=== PATIENT | female | born 1965 | race Caucasian/White ===

== ENCOUNTER 2020-05-26 17:15 | Observation (INO) ==
[2020-05-26 18:28] LABS: Basophils % 0.3 %; Eosinophils # 0.1 K/mcL (0.0-0.6); Eosinophils % 0.7 %; Hemoglobin 6.5 g/dL (11.5-15.4); Immature Granulocytes % 2.5 % (0-4); Lymphocytes # 1.8 K/mcL (0.6-4.6); Lymphocytes % 26.4 %; Mean Corpuscular HGB Conc 32.5 g/dL (31.6-35.5); Mean Corpuscular Hemoglobin 32.3 pg (28.0-33.3); Mean Corpuscular Volume 99.5 fL (83.0-100.0); Mean Platelet Volume 12.6 fL (9.4-12.4); Monocytes # 0.5 K/mcL (0.0-1.3); Monocytes % 7.1 %; Neutrophils # 4.3 K/mcL (1.6-8.9); Nucleated Red Blood Cells 1.2 /100 WBC (0); Platelet Count 121 K/mcL (140-400); Red Blood Count 2.01 M/mcL (3.82-4.97); White Blood Count 6.8 K/mcL (4.3-11.1)
[2020-05-26 18:31] LABS: Bilirubin,Urine Negative (Negative); Blood,Urine Trace (Negative); Clarity,Urine Clear (Clear); Color,Urine Light-Orange (Yellow); Glucose,Urine (UA) Normal (Normal); Ketones,Urine Negative (Negative); Leukocyte Esterase,Urine Moderate (Negative); Mucus,Urine Few per lpf (None-Few); Nitrite,Urine Negative (Negative); Protein,Urine Trace mg/dL (Neg-Trace); RBC,Urine 0-3 per hpf (0-3); Squamous Epithelial Cell,Urine Few per hpf (None-Few)
[2020-05-26 18:34] LABS: INR 1.1; Prothrombin Time 13.2 Seconds (9.4-12.1)
[2020-05-26 18:36] LABS: Activated Partial Thrombo Time 26.9 Seconds (26.0-36.0)
[2020-05-26 18:39] LABS: Alanine Aminotransferase 15 Units/L (7-52); Albumin 4.1 g/dL (3.5-5.7); Alkaline Phosphatase 93 Units/L (34-104); Aspartate Amino Transferase 19 Units/L (13-39); BUN/Creatinine Ratio 17 (6-26); Bilirubin,Total 2.1 mg/dL (0.3-1.0); Blood Urea Nitrogen 10 mg/dL (6-20); Calcium 9.5 mg/dL (8.6-10.3); Carbon Dioxide 23 mEq/L (23-29); Chloride 102 mEq/L (98-107); Globulin 2.1 g/dL (2.4-3.5); Glucose 107 mg/dL (70-105); Lipase 42 Units/L (11-82); Osmolality,Calculated 280 (280-300); Potassium 3.7 mEq/L (3.5-5.1); Sodium 135 mEq/L (136-145); Total Protein 6.2 g/dL (6.4-8.9); Troponin I < 0.03 ng/mL (< 0.04); eGFR For African Americans > 60 (> 60); eGFR For Non-African Americans > 60 (> 60)
[2020-05-26] MEDS ORDERED: Isovue-370 500 ML BOTTLE IVP ONE ×2 (18:41→20:33)
[2020-05-26 18:47] LABS: Hypochromasia Present (Not Present)
[2020-05-26 18:48] LABS: Platelet Estimate Slight Decrease (Normal)
[2020-05-26 19:01] LABS: Hepatitis B Surface Antigen Nonreactive (Nonreactive)
[2020-05-26 19:30] LABS: Hepatitis B Core IgM Nonreactive (Nonreactive); Hepatitis C Virus Antibody Nonreactive (Nonreactive)
[2020-05-26 19:32] LABS: Hepatitis A Antibody IgM Nonreactive (Nonreactive)
[2020-05-26] MEDS ORDERED: Morphine Sulfate 2 MG/ML SYRINGE IVP ONE (20:22)
[2020-05-26] MEDS ORDERED: Naloxone 0.4 MG/ML INJ IVP PRN (22:40)
[2020-05-26] MEDS ORDERED: Ondansetron 4 MG/2 ML VIAL IVP PRN (22:56)
[2020-05-27 00:03] LABS: % Iron Saturation 35 % (15-50); Iron 111 mcg/dL (50-170); Transferrin 226 mg/dL (203-362)
[2020-05-27 01:20] LABS: Bilirubin,Direct 0.4 mg/dL (0.0-0.2); Bilirubin,Indirect 1.7 mg/dL (0.0-1.0)
[2020-05-27 05:37] LABS: Hematocrit 18.2 % (35.3-44.9); Immature Platelets 6.5 % (1.1-6.1); Immature Reticulocyte % 34.4 % (11.0-38.0); Mean Corpuscular HGB Conc 32.4 g/dL (31.6-35.5); Mean Corpuscular Hemoglobin 32.6 pg (28.0-33.3); Mean Corpuscular Volume 100.6 fL (83.0-100.0); Mean Platelet Volume 11.7 fL (9.4-12.4); Platelet Count 109 K/mcL (140-400); Red Blood Count 1.81 M/mcL (3.82-4.97); Retculocyte # 0.07 M/mcL (0.05-0.10); Reticulocyte % 3.7 % (1.6-2.8); White Blood Count 4.1 K/mcL (4.3-11.1)
[2020-05-27 05:56] LABS: BUN/Creatinine Ratio 12 (6-26); Blood Urea Nitrogen 7 mg/dL (6-20); Carbon Dioxide 27 mEq/L (23-29); Chloride 106 mEq/L (98-107); Glucose 106 mg/dL (70-105); Hemoglobin 5.9 g/dL (11.5-15.4); Osmolality,Calculated 284 (280-300); Sodium 138 mEq/L (136-145); eGFR For African Americans > 60 (> 60); eGFR For Non-African Americans > 60 (> 60)
[2020-05-27 05:57] LABS: Albumin 3.8 g/dL (3.5-5.7); Albumin/Globulin Ratio 1.9 (1.1-2.2); Bilirubin,Direct 0.4 mg/dL (0.0-0.2); Bilirubin,Indirect 1.5 mg/dL (0.0-1.0); Bilirubin,Total 1.9 mg/dL (0.3-1.0); Total Protein 5.8 g/dL (6.4-8.9)
[2020-05-27 06:11] LABS: Thyroid Stimulating Hormone 2.021 mcIU/mL (0.340-5.600)
[2020-05-27] MEDS: Pantoprazole 40 MG VIAL IVP SCH ×2 (06:14→17:15)
[2020-05-27] MEDS ORDERED: 0.9 % Sodium Chloride 1,000 ML IVC SCH (10:30)
[2020-05-27] MEDS: methylPREDNISolone 125 MG/2 ML VIAL IVP SCH ×3 (11:08→23:17)
[2020-05-27] MEDS ORDERED: Acetaminophen 325 MG TABLET PO ONE (11:09)
[2020-05-27] MEDS ORDERED: 0.9 % Sodium Chloride 250 ML ONE ×2 (13:02→23:45)
[2020-05-27] MEDS ORDERED: Morphine Sulfate 2 MG/ML SYRINGE IVP ONE (16:53)
[2020-05-27 18:48] LABS: Hematocrit 18.6 % (35.3-44.9)
[2020-05-27 18:51] LABS: Hemoglobin 5.9 g/dL (11.5-15.4)
[2020-05-28] MEDS: methylPREDNISolone 125 MG/2 ML VIAL IVP SCH ×4 (05:39→23:34)
[2020-05-28] MEDS: Pantoprazole 40 MG VIAL IVP SCH ×2 (05:40→17:20)
[2020-05-28 07:28] LABS: Basophils % 0.1 %; Hematocrit 24.2 % (35.3-44.9); Immature Granulocytes % 2.2 % (0-4); Lymphocytes # 1.6 K/mcL (0.6-4.6); Lymphocytes % 18.9 %; Mean Corpuscular HGB Conc 31.8 g/dL (31.6-35.5); Mean Corpuscular Hemoglobin 31.4 pg (28.0-33.3); Mean Corpuscular Volume 98.8 fL (83.0-100.0); Monocytes # 0.3 K/mcL (0.0-1.3); Monocytes % 3.9 %; Nucleated Red Blood Cells 0.8 /100 WBC (0); Platelet Count 161 K/mcL (140-400); Red Blood Count 2.45 M/mcL (3.82-4.97); Segmented Neutrophils % 74.9 %
[2020-05-28 07:31] LABS: Neutrophils # 6.4 K/mcL (1.6-8.9); White Blood Count 8.5 K/mcL (4.3-11.1)
[2020-05-28 07:32] LABS: Hemoglobin 7.7 g/dL (11.5-15.4)
[2020-05-28 07:48] LABS: BUN/Creatinine Ratio 18 (6-26); Blood Urea Nitrogen 10 mg/dL (6-20); Calcium 9.6 mg/dL (8.6-10.3); Carbon Dioxide 23 mEq/L (23-29); Chloride 108 mEq/L (98-107); Glucose 145 mg/dL (70-105); Osmolality,Calculated 292 (280-300); Sodium 140 mEq/L (136-145); eGFR For African Americans > 60 (> 60); eGFR For Non-African Americans > 60 (> 60)
[2020-05-28] MEDS: Cyanocobalamin (B-12) 1,000 MCG TABLET PO SCH (10:01)
[2020-05-28] MEDS: Folic Acid 1 MG TABLET PO SCH (10:01)
[2020-05-28 10:12] LABS: Alanine Aminotransferase 14 Units/L (7-52); Albumin 4.4 g/dL (3.5-5.7); Albumin/Globulin Ratio 2.2 (1.1-2.2); Alkaline Phosphatase 88 Units/L (34-104); Aspartate Amino Transferase 13 Units/L (13-39); Bilirubin,Direct 0.2 mg/dL (0.0-0.2); Bilirubin,Indirect 0.8 mg/dL (0.0-1.0); Lactate Dehydrogenase 545 Units/L (140-271); Total Protein 6.4 g/dL (6.4-8.9)
[2020-05-28 11:35] LABS: Immature Reticulocyte % 49.7 % (11.0-38.0); Retculocyte # 0.16 M/mcL (0.05-0.10); Reticulocyte % 7.1 % (1.6-2.8)
[2020-05-28 17:45] LABS: Hematocrit 24.2 % (35.3-44.9); Hemoglobin 7.5 g/dL (11.5-15.4)
[2020-05-28] MEDS ORDERED: Melatonin 3 MG TABLET PO PRN (23:42)
[2020-05-29 02:23] LABS: Hematocrit 23.6 % (35.3-44.9); Hemoglobin 7.2 g/dL (11.5-15.4); Immature Granulocytes % 1.9 % (0-4); Lymphocytes % 11.4 %; Mean Corpuscular HGB Conc 30.5 g/dL (31.6-35.5); Mean Corpuscular Hemoglobin 31.6 pg (28.0-33.3); Mean Corpuscular Volume 103.5 fL (83.0-100.0); Mean Platelet Volume 11.5 fL (9.4-12.4); Monocytes # 0.4 K/mcL (0.0-1.3); Monocytes % 4.3 %; Neutrophils # 7.3 K/mcL (1.6-8.9); Nucleated Red Blood Cells 0.3 /100 WBC (0); Platelet Count 158 K/mcL (140-400); Red Blood Count 2.28 M/mcL (3.82-4.97); Red Cell Distribution Width 20.1 % (11.5-14.5); Segmented Neutrophils % 82.4 %; White Blood Count 8.8 K/mcL (4.3-11.1)
[2020-05-29 02:40] LABS: BUN/Creatinine Ratio 26 (6-26); Blood Urea Nitrogen 16 mg/dL (6-20); Calcium 9.1 mg/dL (8.6-10.3); Carbon Dioxide 23 mEq/L (23-29); Chloride 108 mEq/L (98-107); Glucose 135 mg/dL (70-105); Osmolality,Calculated 293 (280-300); Potassium 4.1 mEq/L (3.5-5.1); Sodium 140 mEq/L (136-145); eGFR For African Americans > 60 (> 60); eGFR For Non-African Americans > 60 (> 60)
[2020-05-29] MEDS: Pantoprazole 40 MG VIAL IVP SCH (05:36)
[2020-05-29] MEDS: methylPREDNISolone 125 MG/2 ML VIAL IVP SCH ×2 (05:37→13:21)
[2020-05-29] MEDS: Cyanocobalamin (B-12) 1,000 MCG TABLET PO SCH (08:38)
[2020-05-29] MEDS: Folic Acid 1 MG TABLET PO SCH (08:38)
[2020-05-29] MEDS ORDERED: Cyanocobalamin (B-12) 1,000 MCG TABLET PO SCH (09:00)
[2020-05-29 09:23] LABS: Hematocrit RBC Folate 35.2 %
[2020-05-29 13:17] VITALS: BP 148/75
[2020-05-31 09:10] LABS: Alpha 2 Globulin (PEP) 0.59 g/dL (0.48-1.05); Beta Globulin (PEP) 0.49 g/dL (0.48-1.10)
[2020-05-31 09:27] LABS: IFE Reflexed IFE Done; Immunoglobulin A 42 mg/dL (68-408); Immunoglobulin G 467 mg/dL (768-1632); Immunoglobulin M 129 mg/dL (35-263)
== END 2020-05-29 16:00 | disposition home or self-care (01) ==
LOC: EMEROOARM 17:15 → 3ANU 17:15 → SUATTDRO 22:44 → 3ANU 05-27 01:20
PROVIDERS: ADMIT Student in an Organized Health Care Education/Training Program; ATTEND Student in an Organized Health Care Education/Training Program